=== PATIENT | female | born 1985 | race Caucasian/White ===

== ENCOUNTER 2020-11-07 03:42 | Emergency (ER) | payer OTHER ==
[2020-11-07] MEDS ORDERED: Ondansetron PF 4 MG/2 ML Vial ONE (05:01)
[2020-11-07] MEDS ORDERED: Ketorolac Tromethamine 30 MG/ML VIAL ONE (05:01)
[2020-11-07] MEDS ORDERED: Morphine 4 MG/ML VIAL ONE (05:01)
[2020-11-07 05:22] LABS: Bacteria/HPF None Seen HPF (None Seen); Bilirubin Negative (Negative); Blood, Urine 2+ (Negative); Clarity Clear (Clear); Glucose, Urine (Dipstick) 500 mg/dL (Negative); Ketone, Urine Trace mg/dL (Negative); Leukocyte 75 Leu/uL (Negative); Nitrite Negative (Negative); Protein, Urine (Dipstick) 30 mg/dL (Neg-Trace); RBC/HPF Greater than 50 HPF (0-3); Specific Gravity, Urine 1.024 (1.002-1.036); Squamous Epithelial 0-3 HPF (0-3); Urobilinogen Normal mg/dL (Less than 2); pH, Urine 6.5 (5.0-9.0)
[2020-11-07 05:23] LABS: Pregnancy Test - Urine (BHCG) Negative (Negative); Pregu Control Background? CLEAR/WHITE (CLR/WHITE); Pregu Control Bar Appear? YES (CONTROL BAR); Specific Gravity 1.024 (1.002-1.036)
[2020-11-07] MEDS ORDERED: HYDROcodone/Acetaminophen 5/325 mg Tablet ONE (05:49)
== END 2020-11-07 06:40 | disposition home or self-care (01) ==
LOC: ERS 03:42
DX: N20.0 Calculus of kidney (principal)
CPT/HCPCS: 81003; 81015; 81025; 96374; 96375; J1885; J2270; J2405